=== PATIENT | female | born 1960 | race Caucasian/White ===

== ENCOUNTER 2018-09-15 09:25 | Emergency (ER) | payer MEDICAID ==
[~2018-09-15] VITALS: Ht 167.6 cm; Wt 55.0 kg
[2018-09-15 09:29] VITALS: BP 113/73
[2018-09-15] MEDS ORDERED: ibuprofen 200mg tablet PO ONE (09:55)
[2018-09-15] MEDS ORDERED: HYDROcodone/acetaminophen 5mg/325mg tablet PO ONE (09:55)
[2018-09-17] MEDS ORDERED: ONDA4TAB9 PO (09:58)
[2018-09-17] MEDS ORDERED: HYDR-3965 PO (09:58)
== END 2018-09-15 10:12 | disposition home or self-care (01) ==
LOC: ER 09:26
DX: S52.592A Other fractures of lower end of left radius, initial encounter for closed fracture (principal); F17.200 Nicotine dependence, unspecified, uncomplicated; Z59.0 Homelessness; Y09 Assault by unspecified means; Y93.89 Activity, other specified; Y92.89 Other specified places as the place of occurrence of the external cause; Y99.8 Other external cause status
CPT/HCPCS: 29125; 73090; 73110; 99284